=== PATIENT | male | born 1950 | race Caucasian/White ===

== ENCOUNTER 2021-06-29 16:45 | Emergency (ER) | payer OTHER ==
[2021-06-29 17:45] LABS: RED BLOOD COUNT 4.35 M/UL (4.20-5.50); WHITE BLOOD COUNT 7.4 K/UL (4.5-11.0)
[2021-06-29 18:07] LABS: BUN/CREATININE RATIO 12 (0-10)
[2021-06-29] MEDS ORDERED: AUGMENTIN 875-1 EACH PO (20:48)
== END 2021-06-29 20:54 | disposition home or self-care (01) ==
LOC: ER1 16:45
PROVIDERS: Physician Assistant
DX: U07.1 COVID-19 (principal); J12.82 Pneumonia due to coronavirus disease 2019; I25.10 Atherosclerotic heart disease of native coronary artery without angina pectoris; E11.9 Type 2 diabetes mellitus without complications; I10 Essential (primary) hypertension
CPT/HCPCS: 71045; 80053; 82550; 82553; 83874; 84484; 85025; 93005; 99285